=== PATIENT | female | born 1995 | race Caucasian/White ===

== ENCOUNTER 2023-02-23 22:00 | Emergency (ER) | payer MEDICARE, MEDICAID ==
[2023-02-23] MEDS ORDERED: Lidocaine 1% 30 ML SDV INJECT ONE (22:23)
[2023-02-23] MEDS ORDERED: HYDROmorphone 1 MG/ML Syringe SUBCUT ONE (22:23)
[2023-02-23] MEDS ORDERED: Sodium Chloride 0.9% 10 ML Syringe FLUSH PRN (22:31)
[2023-02-23] MEDS ORDERED: HYDROmorphone 1 MG/ML Syringe IVPUSH ONE (22:32)
[2023-02-23] MEDS ORDERED: diphenhydrAMINE 50 MG/ML SDV IVPUSH ONE (22:33)
[2023-02-23 23:05] LABS: BASOPHILS PERCENT AUTO 0.2 % (0.2-1.2); HEMATOCRIT 23.6 % (33.0-47.0); HEMOGLOBIN 7.9 g/dL (12.0-16.0); IMMATURE GRAN ABSOLUTE AUTO 0.06 x10^3/uL (0.00-0.07); LYMPHOCYTES ABSOLUTE AUTO 1.8 x10^3/uL (1.0-4.8); LYMPHOCYTES PERCENT AUTO 18.9 % (25.0-50.0); MEAN CORPUSCULAR HEMOGLOBIN 31.3 pg (26.0-32.0); MEAN CORPUSCULAR HGB CONC 33.5 g/dL (32.0-36.0); MEAN CORPUSCULAR VOLUME 93.7 fL (78.0-93.0); MONOCYTES ABSOLUTE AUTO 0.9 x10^3/uL (0.0-0.8); MONOCYTES PERCENT AUTO 9.9 % (2.0-11.0); NEUTROPHILS ABSOLUTE AUTO 6.6 x10^3/uL (1.8-7.7); NEUTROPHILS PERCENT AUTO 70.4 % (50.0-80.0); PLATELET COUNT,PLT 197 x10^3/uL (130-400); RED BLOOD CELL COUNT 2.52 x10^6/uL (4.00-5.50); WHITE BLOOD CELL COUNT,WBC 9.4 x10^3/uL (4.0-10.0)
[2023-02-23 23:29] LABS: LACTIC ACID 1.3 mmol/L (0.4-2.0)
[2023-02-23 23:33] LABS: A/G RATIO 0.89; ALANINE AMINOTRANSFERASE,ALT 16 U/L (14-59); ALBUMIN 3.2 g/dL (3.4-5.0); ALKALINE PHOSPHATASE 76 U/L (46-116); BILIRUBIN TOTAL 0.2 mg/dL (0.2-1.0); BLOOD UREA NITROGEN,BUN 33 mg/dL (7-18); C-REACTIVE PROTEIN 10.95 mg/dL (<=0.30); CALCIUM 8.8 mg/dL (8.5-10.1); CARBON DIOXIDE,CO2 24 mmol/L (21-32); CHLORIDE,CL 100 mmol/L (98-107); CREATININE 1.4 mg/dL (0.55-1.02); EST CRCL DRUG DOSING (CG) 43.74 mL/min; POTASSIUM,K 4.3 mmol/L (3.5-5.1); PROTEIN TOTAL,TP 6.8 g/dL (6.4-8.2); SODIUM,NA 137 mmol/L (136-145)
[2023-02-23 23:36] LABS: ANION GAP 17.3 mmol/L (5-15); ESTIMATED GFR 53 mL/min (>=60); GLUCOSE RANDOM 509 mg/dL (70-99)
[2023-02-23] MEDS ORDERED: Iopamidol 612 MG/ML 100 ML Bottle IVPUSH ONE (23:42)
[2023-02-23 23:44] LABS: ASPARTATE AMNIOTRANSFERASE,AST < 10 U/L (15-37)
[2023-02-24] MEDS ORDERED: HYDROmorphone 1 MG/ML Syringe IVPUSH ONE ×2 (00:26→01:56)
[2023-02-24] MEDS ORDERED: diphenhydrAMINE 50 MG/ML SDV IVPUSH ONE (00:27)
[2023-02-24] MEDS ORDERED: Take Home: Acetaminophen/HYDROcodone 325-5 MG, 5 Tab Pack PO ONE (02:17)
[2023-02-24] MEDS ORDERED: Sulfamethoxazole/Trimethoprim 800-160 MG Tab PO ONE (02:17)
== END 2023-02-24 03:15 | disposition home or self-care (01) ==
LOC: VM.ED 22:00
DX: N76.4 Abscess of vulva (principal); N76.2 Acute vulvitis; Z79.899 Other long term (current) drug therapy; Z88.5 Allergy status to narcotic agent
CPT/HCPCS: 36415; 56405; 74177; 80053; 81025; 83605; 85025; 86140; 87040; 87070; 96374; 96375; 96376; 99284; A9270; J1170; J1200; Q9967; J3490